=== PATIENT | male | born 2000 | race Hispanic/Latino ===

== ENCOUNTER 2020-04-04 12:28 | Outpatient (CLI) | payer OTHER ==
--- NOTE | 2020-04-04 13:37 | RAD ---
Cervical spine 3 views: 04/04/2020 HISTORY: Cervical spine fracture, prior trauma FINDINGS: Prior CT examination of the cervical spine performed 03/04/2020 demonstrated multiple prior l eft-sided fractures. Those fractures are not well assessed on this examination secondary to technique. Open-mouth odontoid view demonstrates a normal-appearing dens and C1-2 articulation. No anterolisthesis or retrolisthesis is noted. No prevertebral soft tissue swelling. Cervical vertebr al body height and alignment appears grossly unremarkable on the frontal and lateral views. Detailed assessment for interval healing of previously noted fractures would require CT. IMPRESSION: Cervical spine series as detailed above.
== END 2020-04-04 12:29 | disposition home or self-care (01) ==
LOC: TBSIIMAG 12:28
PROVIDERS: ATTEND Physician Assistant
DX: S12.9XXA Fracture of neck, unspecified, initial encounter (principal)
CPT/HCPCS: 72040